=== PATIENT | female | born 1985 | race Caucasian/White ===

== ENCOUNTER → 2016-07-22 | Day surgery (SDC) | payer BC ==
[2016-07-11 13:47] VITALS: Ht 165.1 cm; Wt 62.3 kg
[~2016-07-22] VITALS: Ht 165.1 cm; Wt 62.3 kg
[~2016-07-22] MED LIST: LIDOCAINE HCL 2% 2 ML VIAL (20MG/ML) ONE; MIDAZOLAM HCL 1 MG/ML 2ML VIAL ONE; ONDANSETRON INJ 2 MG/ML 2 ML VIAL ONE; PROPOFOL IV EMULSION 10 MG/ML 20 ML VIAL IV ONE; SODIUM CHLORIDE 0.9% 500ML 500 ML IV ONE
--- NOTE | 2016-07-22 11:06 | Endo History and Physical ---
History & Physical Date of Service: Jul 22, 2016. Chief Complaint: Screening, Fam hx colon CA (maternal grandfather; fam hx colon polyps; mom Referring Physician: Venancio Cisneros History of Present Illness 30 yo CF who presents for colonoscopy secondary to family history of colon cancer and colon polyps. Past Surgical History Hx Cardiac Surgery: No Hx Internal Defibrillator: No Hx Pacemaker: No Hx Abdominal Surgery: No Hx of Implantable Prosthesis: No Hx Post-Op Nausea and Vomiting: No Hx Cancer Surgery: No Hx Thoracic Surgery: No Hx Orthopedic: No Hx Urinary Tract Surgery: No Family History Colon CA, Polyp Social History Smoking Status: Never Smoker Hx Substance Use: No Hx Alcohol Use: Yes (RARELY) Allergies Coded Allergies: NO KNOWN DRUG ALLERGIES (Verified Allergy, Unknown, ., 07/11/16) Current Medications Reported Home Medications Medications Dose Route/Sig Max Daily Dose Days Date Category No Active Prescriptions or Reported Medications Rx Vital Signs Weight (Kilograms): 62.27 Height (Feet): 5 Height (Inches): 5 Date Time Temp Pulse Resp B/P Pulse Ox O2 Delivery O2 Flow Rate FiO2 07/22/16 10:39 37.1 72 16 118/65 97 Room Air Physical Exam General Appearance: WD/WN, no apparent distress Respiratory/Chest: Auscultation: breath sounds normal Cardiovascular: Heart Auscultation: RRR Abdomen: Bowel Sounds: normal Inspection & Palpation: soft, non-distended, no tenderness, guarding & rebound Assessment and Plan Assessment: 30 yo CF who presents for colonoscopy secondary to family history of colon cancer and colon polyps. Plan: Proceed with colonoscopy.
--- NOTE | 2016-07-22 11:24 | Discharge Instructions ---
Endoscopy Patient Instructions Date / Procedure(s) Performed Jul 22, 2016. Colonoscopy Allergy Information Coded Allergies: NO KNOWN DRUG ALLERGIES (Verified Allergy, Unknown, ., 07/11/16) Discharge Date / Findings Jul 22, 2016. Internal hemorrhoids Medication Instructions Reported Home Medications Medications Dose Route/Sig Max Daily Dose Days Date Category No Active Prescriptions or Reported Medications Rx Provider Instructions Activity Restrictions - No exercising or heavy lifting for 24 hours. - Do not drink alcohol the day of the procedure. - Do not drive a car or operate machinery until the day after the procedure. - Do not make any important decisions or sign important papers in 24 hours after the procedure. Following Day: - Return to full activity which may include returning to work/school. Diet Start your diet with liquids and light foods (jello, soup, juice, toast). Then eat your usual diet if not nauseated. Treatment For Common After Affects For mild abdominal pain, bloating, or excessive gas: - Rest - Eat lightly - Lie on right side Follow-Up Information Follow-up with Venancio Cisneros as scheduled Anesthesia Information What You Should Know You have had a procedure that required some medicine to reduce anxiety and discomfort. This treatment is called moderate sedation. After receiving the treatment, you may be sleepy, but you will be able to breathe on your own. The effects of the treatment may last for several hours. Follow these instructions along with Activity/Diet recommendations noted above: * Do NOT do anything where dizziness or clumsiness would be dangerous. * Rest quietly at home today, then you can be up and about tomorrow. * Have a responsible person stay with you the rest of today. * You may have had an I.V. today. If so, you may take the dressing off later today. Recommendations Call your doctor if: * Trouble breathing * Continuous vomiting for more than 24 hours * Temperature above 101 degrees * Severe abdominal pain or bloating * Pain not relieved by pain medicine ordered * There is increased drainage or redness from any incision * A large amount of rectal bleeding greater than 2-3 tablespoons. (If you had a polyp/s removed or have hemorrhoids, a small amount of blood - from the rectum is to be expected.) * You have any unanswered questions or concerns. IN THE EVENT OF A SERIOUS EMERGENCY, GO TO THE NEAREST EMERGENCY ROOM Your discharge instructions were prepared by provider Edmundo G. Case. Patient Instructions Signature Page Leticia Hooker Patient (or Guardian) Signature/Date: I have read and understand the instructions given to me by my caregivers. Caregiver/RN/Doctor Signature/Date: The above-named patient and/or guardian has received patient instructions on this date. + Original Patient Signature Page (only) stays with chart. Please make copy for patient.
--- NOTE | 2016-07-22 11:30 | GI REPORT ---
Procedure Date: 07/22/2016 10:41 AM Procedure: Colonoscopy Indications: Family history of colon cancer, Family history of colonic polyps in a first-degree relative Medicines: Monitored Anesthesia Care Complications: No immediate complications. Estimated Blood Loss: Estimated blood loss: none. Procedure: Pre-Anesthesia Assessment: - Prior to the procedure, a History and Physical was performed, and patient medications and allergies were reviewed. The patient's tolerance of previous anesthesia was also reviewed. The risks and benefits of the procedure and the sedation options and risks were discussed with the patient. All questions were answered, and informed consent was obtained. Prior Anticoagulants: The patient has taken no previous anticoagulant or antiplatelet agents. ASA Grade Assessment: I - A normal, healthy patient. After reviewing the risks and benefits, the patient was deemed in satisfactory condition to undergo the procedure. After I obtained informed consent, the scope was passed under direct vision. Throughout the procedure, the patient's blood pressure, pulse, and oxygen saturations were monitored continuously. The scope was introduced through the anus and advanced to the terminal ileum. The colonoscopy was performed without difficulty. The patient tolerated the procedure well. The quality of the bowel preparation was good. The terminal ileum, ileocecal valve, appendiceal orifice, and rectum were photographed. Findings: Non-bleeding internal hemorrhoids were found during retroflexion. The hemorrhoids were small. Impression: - Non-bleeding internal hemorrhoids. - No specimens collected. Recommendation: - Resume previous diet. - Continue present medications. - Repeat colonoscopy in 5 years for surveillance. - Return to primary care physician as previously scheduled. Edmundo Kulkarni DO 07/22/2016 11:29:08 AM This report has been signed electronically. Note Initiated On: 07/22/2016 10:41 AM
[2016-07-22 11:55] VITALS: BP 102/56; PULSE 65; O2SAT 100
--- NOTE | 2016-07-22 15:05 | Anesthesiology Progress Note ---
Anesthesia Post Op Note Date & Time Jul 22, 2016 at 15:05 Vital Signs Pain Intensity: 0 Vital Signs Past 12 Hours Date Time Temp Pulse Resp B/P Pulse Ox O2 Delivery O2 Flow Rate FiO2 07/22/16 11:55 65 16 102/56 100 Room Air 07/22/16 11:40 70 16 103/54 100 Room Air 07/22/16 11:25 68 16 89/53 100 Room Air 07/22/16 10:39 37.1 72 16 118/65 97 Room Air Notes Mental Status: alert / awake / arousable, participated in evaluation Pt Amnestic to Procedure: Yes Nausea / Vomiting: adequately controlled Pain: adequately controlled Airway Patency, RR, SpO2: stable & adequate BP & HR: stable & adequate Hydration State: stable & adequate Anesthetic Complications: no major complications apparent
== END | disposition home or self-care (01) ==
LOC: C.GI 09:59
PROVIDERS: ATTEND Internal Medicine
DX: Z12.11 Encounter for screening for malignant neoplasm of colon (principal); K64.8 Other hemorrhoids; Z83.71 Family history of colonic polyps; Z80.0 Family history of malignant neoplasm of digestive organs

== ENCOUNTER → 2016-09-12 | Outpatient (CLI) | payer BC ==
[2016-09-12 17:44] LABS: BASO % 0.6 %; BASO ABS # 0.03 K/uL (0-0.2); COMPLETE YES; EOS % 1.7 %; HEMATOCRIT 40.9 % (37-47); IG% 0.2 %; LYMPH ABS # 1.71 K/uL (1.2-3.4); MEAN CELL VOLUME 92.7 fL (80-100); MEAN CORPUSCULAR HEMOGLOBIN 30.6 pg (25-34); MEAN PLATELET VOLUME 11.6 fL (7.4-10.4); MONO % 5.5 %; PLATELET COUNT 286 K/uL (130-400); RED BLOOD COUNT 4.41 M/uL (4.2-5.4); WHITE BLOOD COUNT 4.75 K/uL (4.8-10.8)
[2016-09-12 18:16] LABS: ALT/SGPT 17 U/L (12-78); BLOOD UREA NITROGEN 11 mg/dl (7-18); BUN/CREATININE RATIO 13.5 (10-20); CALCIUM 9.3 mg/dl (8.5-10.1); CARBON DIOXIDE 29 mmol/L (21-32); CHLORIDE 105 mmol/L (98-107); GLUCOSE 76 mg/dl (70-99); POTASSIUM 4.4 mmol/L (3.5-5.1); SODIUM 141 mmol/L (136-145)
[2016-09-12 18:21] LABS: LYME DISEASE AB IGG NEG (NEG); LYME DISEASE AB IGM NEG (NEG)
[2016-09-12 18:26] LABS: ALB/GLOB RATIO 1.1 (0.9-2); ALKALINE PHOSPHATASE 79 U/L (45-117); AST/SGOT 13 U/L (15-37); THYROID STIMULATING HORMONE 0.856 uIu/ml (0.300-4.500)
== END | disposition home or self-care (01) ==
LOC: C.LABBFT 14:18
PROVIDERS: ATTEND Physician Assistant Medical
DX: H57.10 Ocular pain, unspecified eye (principal); B00.1 Herpesviral vesicular dermatitis; R53.1 Weakness

== ENCOUNTER → 2016-12-25 | Outpatient (CLI) | payer BC ==
[2016-12-25 12:19] LABS: URINE APPEARANCE CLOUDY (CLEAR); URINE BILIRUBIN NEG (NEG); URINE COLOR YELLOW; URINE EPITHELIAL CELL AUTO 20-30 /lpf (0-5); URINE NITRITE NEG (NEG); URINE PH 7.5 (4.5-7.5); URINE SPECIFIC GRAVITY 1.025 (1.000-1.030); UROBILINOGEN NEG (NEG)
[2016-12-25 12:27] LABS: MANUAL MICROSCOPIC REQUIRED? NO; REVIEW REQ? NO
== END | disposition home or self-care (01) ==
LOC: C.LABSPEC 11:37
PROVIDERS: ATTEND Obstetrics & Gynecology
DX: Z34.00 Encounter for supervision of normal first pregnancy, unspecified trimester (principal)

== ENCOUNTER → 2017-01-09 | Outpatient (CLI) | payer BC ==
[2017-01-13 10:08] LABS: CHLAMYDIA TRACH RNA*** NOT DETECTED (NOT DETECTED); GC (NEIS GONORRHOEAE)RNA** NOT DETECTED (NOT DETECTED)
== END | disposition home or self-care (01) ==
LOC: C.LABSPEC 13:28
PROVIDERS: ATTEND Obstetrics & Gynecology
DX: Z34.00 Encounter for supervision of normal first pregnancy, unspecified trimester (principal)

== ENCOUNTER → 2017-01-09 | Outpatient (CLI) | payer BC | END | disposition home or self-care (01) | LOC: C.PAPS 14:33 | PROVIDERS: ATTEND Obstetrics & Gynecology | DX: Z01.419 Encounter for gynecological examination (general) (routine) without abnormal findings (principal) ==

== ENCOUNTER → 2017-02-27 | Outpatient (CLI) | payer BC ==
[2017-02-27 17:27] LABS: GTGD 50 Grams
== END | disposition home or self-care (01) ==
LOC: C.LAB1850 14:55
PROVIDERS: ATTEND Obstetrics & Gynecology
DX: Z34.01 Encounter for supervision of normal first pregnancy, first trimester (principal)

== ENCOUNTER → 2017-05-20 | Outpatient (CLI) | payer BC ==
[2017-05-20 17:58] LABS: URINE APPEARANCE CLEAR (CLEAR); URINE BILIRUBIN NEG (NEG); URINE COLOR YELLOW; URINE EPITHELIAL CELL AUTO >30 /lpf (0-5); URINE NITRITE NEG (NEG); URINE PH 5.5 (4.5-7.5); URINE SPECIFIC GRAVITY 1.023 (1.000-1.030); UROBILINOGEN NEG (NEG)
[2017-05-20 18:00] LABS: MANUAL MICROSCOPIC REQUIRED? NO; REVIEW REQ? YES
== END | disposition home or self-care (01) ==
LOC: C.LABSPEC 17:29
PROVIDERS: ATTEND Obstetrics & Gynecology
DX: Z34.02 Encounter for supervision of normal first pregnancy, second trimester (principal)

== ENCOUNTER → 2017-06-03 | Outpatient (CLI) | payer BC ==
[2017-06-03 16:40] LABS: HEMATOCRIT 34.5 % (37-47)
[2017-06-03 18:01] LABS: GTGD 50 Grams
== END | disposition home or self-care (01) ==
LOC: C.LAB1850 15:18
PROVIDERS: ATTEND Obstetrics & Gynecology
DX: Z34.02 Encounter for supervision of normal first pregnancy, second trimester (principal)

== ENCOUNTER → 2017-06-13 | Outpatient (CLI) | payer BC | END | disposition home or self-care (01) | LOC: C.LAB1850 07:41 | PROVIDERS: ATTEND Obstetrics & Gynecology | DX: O28.1 Abnormal biochemical finding on antenatal screening of mother (principal) ==

== ENCOUNTER → 2017-07-17 | Outpatient (CLI) | payer OTHER | END | disposition home or self-care (01) | LOC: C.LABSPEC 09:06 | PROVIDERS: ATTEND Obstetrics & Gynecology | DX: Z34.03 Encounter for supervision of normal first pregnancy, third trimester (principal) ==

== ENCOUNTER 2017-08-13 23:37 | Inpatient (IN) | payer OTHER ==
[~2017-08-13] VITALS: Ht 165.1 cm; Wt 85.5 kg
[2017-08-14] MEDS ORDERED: PRENTAB26 PO (00:41)
[2017-08-14 00:42] VITALS: Ht 165.1 cm; Wt 85.5 kg
[2017-08-14] MEDS ORDERED: LACTATED RINGER'S 1000ML 1,000 ML IV PRN (04:42)
[2017-08-14] MEDS ORDERED: BUPIVACAINE 0.25% 30 ML VIAL ONE (04:51)
[2017-08-14] MEDS ORDERED: FENTANYL 2MCG/ML ROPIV 1.25MG/ML 100ML BAG EPI ONE (04:51)
[2017-08-14] MEDS ORDERED: FENTANYL CITRATE INJ 50 MCG/1 ML 2 ML VIAL ONE (04:51)
[2017-08-14] MEDS ORDERED: EpHEDrine SULFATE INJ 50 MG/ML AMP ONE (04:51)
[2017-08-14 05:01] LABS: MEAN CELL VOLUME 87.5 fL (80-100); MEAN CORPUSCULAR HGB CONC 34.3 g/dl (32-36); MEAN PLATELET VOLUME 11.1 fL (7.4-10.4); PLATELET COUNT 150 K/uL (130-400); RED CELL DISTRIBUTION WIDTH CV 13.2 % (11.5-14.5); RED CELL DISTRIBUTION WIDTH SD 42.4 fL (36.4-46.3); WHITE BLOOD COUNT 11.99 K/uL (4.8-10.8)
[2017-08-14] MEDS: LACTATED RINGER'S 1000ML 1,000 ML IV SCH ×2 (05:39→09:38)
[2017-08-14] MEDS ORDERED: NALOXONE HCL INJ 1 MG in SODIUM CHLORIDE 0.9% 1000ML 1,000 ML IV PRN (05:52)
[2017-08-14] MEDS ORDERED: LACTATED RINGER'S 1000ML 500 ML IV PRN ×2 (05:52→08:16)
[2017-08-14] MEDS ORDERED: NALOXONE HCL INJ 0.4 MG/1 ML VIAL/CARP IV PRN (06:00)
[2017-08-14] MEDS ORDERED: DiphenhydrAMINE HCL 50 MG/ML VIAL IV PRN (06:00)
[2017-08-14] MEDS ORDERED: ONDANSETRON INJ 2 MG/ML 2 ML VIAL IV PRN (06:00)
[2017-08-14] MEDS ORDERED: NALBUPHINE HCL INJ 10 MG/ML AMP IV PRN (06:00)
[2017-08-14] MEDS ORDERED: EpHEDrine SULFATE INJ 50 MG/ML AMP IV PRN (06:00)
[2017-08-14] MEDS: FENTANYL 2MCG/ML ROPIV 1.25MG/ML 100ML BAG EPI PRN ×2 (07:00→13:00)
[2017-08-14] MEDS ORDERED: OXYTOCIN 30 UNITS/500ML NSS IV PRN ×2 (08:30→17:00)
[2017-08-14] MEDS ORDERED: NURSING VERBAL MED ORDER ONE ×2 (13:45→16:00)
[2017-08-14] MEDS ORDERED: METHYLERGONOVINE MALEATE 0.2 MG/ML AMP ONE (16:58)
[2017-08-14] MEDS ORDERED: DIPHTHERIA/TETANUS/PERTUSSIS 0.5 ML SYR/VIAL IM. ONE (17:00)
[2017-08-14] MEDS ORDERED: ACETAMINOPHEN 325 MG TAB PO PRN (17:00)
[2017-08-14] MEDS ORDERED: ACETAMINOPHEN/CODEINE 300/30MG TAB PO PRN ×2 (17:00)
[2017-08-14] MEDS ORDERED: METHYLERGONOVINE MALEATE 0.2 MG/ML AMP IM ONE (17:00)
[2017-08-14] MEDS ORDERED: BENZOCAINE 20% AER SPR 82.5 GM CAN EXT PRN (17:00)
[2017-08-14] MEDS ORDERED: LANOLIN OINT EXT PRN (17:00)
[2017-08-14] MEDS ORDERED: HYDROCORTISONE ACETATE 25 MG SUPP PR PRN (17:00)
[2017-08-14] MEDS ORDERED: SUPERCREAM 0.870 % 15GM JAR EXT PRN (17:00)
--- NOTE | 2017-08-14 17:45 | Anesthesia Procedure Note ---
Anesthesia Epidural Removal Nt Date & Time Aug 14, 2017 at 17:45 Vital Signs Pain Intensity: 0.0 Notes Mental Status: alert / awake / arousable, participated in evaluation Nausea / Vomiting: adequately controlled Pain: adequately controlled Airway Patency, RR, SpO2: stable & adequate BP & HR: stable & adequate Hydration State: stable & adequate Neuraxial Anesthesia: was administered Anesthetic Complications: no major complications apparent, pt satisfied with anesthetic care Epidural: removed without complications, with tip intact
--- NOTE | 2017-08-14 17:54 | DELIVERY SUMMARY ---
DATE OF OPERATION: 08/14/2017 FINDINGS: Viable female with Apgars of 8 and 9. Baby delivered over mild second degree laceration. Cord gases and cord blood samples obtained. Placenta delivered spontaneously. Laceration repaired in routine fashion. ESTIMATED BLOOD LOSS: 300 mL. DELIVERY NOTE: The patient is a 31-year-old 1, para 0 at 40 plus weeks gestational age, who presented to labor and delivery with complaint of contractions. The patient had been observed on labor and delivery for several hours and had a cervical change from 1-2 cm to 3 cm and was therefore admitted. course remarkable for gestational diabetes diet controlled. Upon admission, the patient was 3 cm dilated, 100% effaced and 0 station. The patient was very uncomfortable. Anesthesia was consulted and epidural was placed. Following placement of the epidural, she had artificial rupture of membranes for light meconium. Tracing was category 1. Contractions spaced out after the epidural and Pitocin for initiated for augmentation protocol increased. Over the next 8 hours, the patient progressed to full dilatation. She initially had no sensation to push and the epidural rate was decreased. When the sensation of the contractions returned, the patient began her second stage and pushed for approximately 5 minutes delivering the viable female infant. Good vigorous cry at terminating meconium resuscitation. Cord was clamped and cut. Cord gases and cord blood samples obtained. Placenta delivered spontaneously. Inspection of the perineum showed a midline second degree laceration and this was repaired with 4-0 Vicryl in routine fashion. Estimated blood loss was 300 mL. Sponge and needle count was correct. I attest to the content of the Intraoperative Record and any orders documented therein. Any exception s are noted below.
[2017-08-14] MEDS: IBUPROFEN 600 MG TAB PO PRN ×2 (18:44→22:38)
[2017-08-14 19:50] VITALS: BP 123/76; PULSE 78; TEMP 36.6; O2SAT 96
[2017-08-14 23:35] VITALS: BP 104/62; PULSE 73; TEMP 36.6
[2017-08-15 04:20] VITALS: BP 112/63; PULSE 82; TEMP 36.7
[2017-08-15] MEDS: IBUPROFEN 600 MG TAB PO PRN ×3 (04:37→12:43)
[2017-08-15 05:59] LABS: HEMATOCRIT 33.2 % (37-47); HEMOGLOBIN 11.4 g/dL (12.0-16.0)
--- NOTE | 2017-08-15 06:42 | Progress Note ---
Subjective Aug 15, 2017. Subjective conversation w/ patient (Patient seen and examined at bedside), physical exam Ambulation: ambulating normally Voiding: no voiding problems Diet Tolerance: Regular Diet Lochia: Moderate Feeding Type: Breast Feeding Pain: 4/10 in perineal region, improved with analgesia Review of Systems Constitutional: No fever, No chills Respiratory: No shortness of breath Cardiac: No chest pain Abdomen: No nausea, No vomiting Objective Vital Signs Date Time Temp Pulse Resp B/P (MAP) Pulse Ox O2 Delivery O2 Flow Rate FiO2 08/15/17 04:20 36.7 82 18 112/63 (79) 08/14/17 23:35 36.6 73 18 104/62 (76) 08/14/17 23:35 Room Air 08/14/17 19:50 36.6 78 18 123/76 (92) 96 Room Air 08/14/17 19:50 96 Room Air Physical Exam General Appearance: WELL-APPEARING, WD/WN, NO APPARENT DISTRESS Respiratory/Chest: lungs clear, normal breath sounds Cardiovascular: regular rate, rhythm Abdomen: soft Fundus: Firm, Non-Tender, Relation to Umbilicus (1 below) Extremities: no calf tenderness Laboratory Results Last 24 Hours Test 08/14/17 07:20 08/14/17 09:43 08/14/17 11:08 08/14/17 13:04 Bedside Glucose 104 mg/dl 88 mg/dl 75 mg/dl 74 mg/dl Test 08/14/17 15:35 08/14/17 16:15 08/15/17 05:47 Bedside Glucose 66 mg/dl 92 mg/dl Hemoglobin 11.4 g/dL Hematocrit 33.2 % Medications Current Inpatient Medications Medications (Trade) Dose Ordered Sig/William Route Start Time Stop Time Status Last Admin Dose Admin Lactated Ringer's 1,000 ml @ 125 mls/hr Q8H IV 08/14/17 04:42 08/16/17 04:41 08/14/17 09:38 125 MLS/HR Lactated Ringer's 500 ml @ 999 mls/hr Q31M PRN IV 08/14/17 08:16 09/13/17 08:15 Oxytocin (Pitocin IV) 30 units UD PRN IV 08/14/17 17:00 09/13/17 16:59 Benzocaine (Dermoplast Aero Spr) 1 appln PRN PRN EXT 08/14/17 17:00 09/13/17 16:59 08/14/17 21:20 1 APPLN Cocaine HCl (Supercream 0.870% Cr) BID PRN EXT 08/14/17 17:00 08/28/17 16:59 Hydrocortisone Acetate (Anusol Hc Supp) 25 mg BID PRN [place] 08/14/17 17:00 09/13/17 16:59 Lanolin (Lanolin Oint) PRN PRN EXT 08/14/17 17:00 09/13/17 16:59 Prenat Multivit/ [place]/Iron/Folic Ac ( Vitamin Tab) 1 tab DAILY PO 08/15/17 08:00 09/14/17 07:59 Ibuprofen (Motrin Tab) 600 mg Q4H PRN PO 08/14/17 17:00 09/13/17 16:59 08/15/17 04:37 600 MG Acetaminophen (Tylenol Tab) 650 mg Q6H PRN PO 08/14/17 17:00 09/13/17 16:59 Acetaminophen/ Codeine Phosphate (Tylenol w/ Codeine #3 Tab) 1 tab Q4H PRN PO 08/14/17 17:00 09/13/17 16:59 Acetaminophen/ Codeine Phosphate (Tylenol w/ Codeine #3 Tab) 2 tab Q4H PRN PO 08/14/17 17:00 09/13/17 16:59 Bisacodyl (Dulcolax Tab) 5 mg 20 PO 08/15/17 20:00 08/15/17 20:01 Docusate Sodium (coLACE CAP) 100 mg BID PO 08/14/17 20:00 09/13/17 19:59 Ferrous Sulfate (Feosol Tab) 325 mg DAILY PO 08/15/17 08:00 09/14/17 07:59 Assessment and Plan Post- Day#: 1 Continue Routine Care: 31 year old s/p NVD day 1 - complicated by GDM - pt doing well clinically - O+, Rubella immune, GBS -ve - vitals reviewed and wnl - Hgb 12.9 -> 11.4 - continue to encourage ambulation, and analgesia prn Resident Physician Supervision Note: I interviewed and examined the patient. Discussed with Dr. Tarmohamed and agree with findings and plan as documented in the note. Any exceptions or clarifications are listed here: baby desated, in nursery in Level II, echo with probable small VSD Documented By: Karlos Gil Resident Tracking Resident Involvement: Resident Care Provided Care Provided: OB Delivery
--- NOTE | 2017-08-15 06:55 | Discharge Instructions ---
Discharge Instructions Date of Service Aug 15, 2017. Admission Reason for Admission: LABOR Discharge Discharge Diagnosis / Problem: Vaginal Delivery Discharge Goals Goal(s): Routine recovery after delivery Medications Continue Dispensed Medications: supercream, dermaplast, tucks, lansinoh Activity Recommendations Activity Limitations: per Instructions/Follow-up section . Current Hospital Diet Patient's current hospital diet: Regular OB Diet Discharge Diet Recommended Diet: Regular Diet Pending Studies Studies pending at discharge: no Medical Emergencies . Who to Call and When: Medical Emergencies: If at any time you feel your situation is an emergency, please call 911 immediately. . Non-Emergent Contact Non-Emergency issues call your: Primary Care Provider . . "Provider Documentation" section prepared by Pollo Callejas. . VTE Core Measure Inpt VTE Proph given/why not?: Treatment not indicated
[2017-08-15 07:30] VITALS: BP 92/54; PULSE 78; TEMP 37; O2SAT 97
[2017-08-15] MEDS: DOCUSATE SODIUM 100 MG CAP PO SCH ×2 (08:00→20:00)
[2017-08-15] MEDS: FERROUS SULFATE 325 MG TAB PO SCH (08:48)
[2017-08-15] MEDS: PRENATAL VITAMIN TAB PO SCH (08:48)
[2017-08-15 11:30] VITALS: BP 103/67; PULSE 81; TEMP 36.8; O2SAT 97
[2017-08-15 15:26] VITALS: BP 103/64; PULSE 77; TEMP 36.8; O2SAT 98
[2017-08-15] MEDS ORDERED: BISACODYL 5 MG TABEC PO SCH (20:00)
[2017-08-16] VITALS: BP 94/56; PULSE 70; TEMP 36.6
--- NOTE | 2017-08-16 06:34 | Progress Note ---
Subjective Aug 16, 2017. Subjective conversation w/ patient (patient seen and examined at bedside) Ambulation: ambulating normally Voiding: no voiding problems Diet Tolerance: Regular Diet Lochia: Moderate Feeding Type: Breast Feeding Pain: 4/10, improved with analgesia Review of Systems Constitutional: No fever, No chills Respiratory: No shortness of breath Cardiac: No chest pain Abdomen: No nausea, No vomiting Female : No dysuria Objective Vital Signs Date Time Temp Pulse Resp B/P (MAP) Pulse Ox O2 Delivery O2 Flow Rate FiO2 08/16/17 00:00 Room Air 08/16/17 00:00 36.6 70 18 94/56 (69) Room Air 08/15/17 15:26 98 Room Air 08/15/17 15:26 36.8 77 18 103/64 (77) 98 Room Air 08/15/17 11:30 36.8 81 16 103/67 (79) 97 Room Air 08/15/17 07:30 Room Air 08/15/17 07:30 37.0 78 16 92/54 (67) 97 Room Air Physical Exam General Appearance: WELL-APPEARING, WD/WN, NO APPARENT DISTRESS Respiratory/Chest: lungs clear, normal breath sounds Cardiovascular: regular rate, rhythm Abdomen: soft Fundus: Firm, Non-Tender, Relation to Umbilicus (1 below) Extremities: no calf tenderness, + pertinent finding (bilateral leg edema) Medications Current Inpatient Medications Medications (Trade) Dose Ordered Sig/William Route Start Time Stop Time Status Last Admin Dose Admin Lactated Ringer's 500 ml @ 999 mls/hr Q31M PRN IV 08/14/17 08:16 09/13/17 08:15 Oxytocin (Pitocin IV) 30 units UD PRN IV 08/14/17 17:00 09/13/17 16:59 Benzocaine (Dermoplast Aero Spr) 1 appln PRN PRN EXT 08/14/17 17:00 09/13/17 16:59 08/14/17 21:20 1 APPLN Cocaine HCl (Supercream 0.870% Cr) BID PRN EXT 08/14/17 17:00 08/28/17 16:59 Hydrocortisone Acetate (Anusol Hc Supp) 25 mg BID PRN [place] 08/14/17 17:00 09/13/17 16:59 Lanolin (Lanolin Oint) PRN PRN EXT 08/14/17 17:00 09/13/17 16:59 Prenat Multivit/ Provider Relations Manager/Iron/Folic Ac ( Vitamin Tab) 1 tab DAILY PO 08/15/17 08:00 09/14/17 07:59 08/15/17 08:48 1 TAB Ibuprofen (Motrin Tab) 600 mg Q4H PRN PO 08/14/17 17:00 09/13/17 16:59 08/15/17 12:43 600 MG Acetaminophen (Tylenol Tab) 650 mg Q6H PRN PO 08/14/17 17:00 09/13/17 16:59 Acetaminophen/ Codeine Phosphate (Tylenol w/ Codeine #3 Tab) 1 tab Q4H PRN PO 08/14/17 17:00 09/13/17 16:59 Acetaminophen/ Codeine Phosphate (Tylenol w/ Codeine #3 Tab) 2 tab Q4H PRN PO 08/14/17 17:00 09/13/17 16:59 Docusate Sodium (coLACE CAP) 100 mg BID PO 08/14/17 20:00 09/13/17 19:59 08/15/17 08:00 100 MG Ferrous Sulfate (Feosol Tab) 325 mg DAILY PO 08/15/17 08:00 09/14/17 07:59 08/15/17 08:48 325 MG Assessment and Plan Post- Day#: 2 Continue Routine Care: Resident Physician Supervision Note: I was present with Dr. Callejas during the history and exam. I discussed the case with the resident and agree with the findings and plan as documented in the note. Any exceptions or clarifications are listed here: [None] Documented By: Sarah Dodd 31 year old s/p NVD day 2 - complicated by GDM - pt doing well clinically - O+, Rubella immune, GBS -ve - vitals reviewed and wnl - continue to encourage ambulation and analgesia prn - baby desatted initially, but is now stable. Peds is monitoring closely today. Resident Tracking Resident Involvement: Resident Care Provided Care Provided: OB Delivery
[2017-08-16 07:00] VITALS: BP 104/69; PULSE 88; TEMP 36.6; O2SAT 98
[2017-08-16] MEDS: IBUPROFEN 600 MG TAB PO PRN ×3 (07:05→19:26)
[2017-08-16] MEDS: FERROUS SULFATE 325 MG TAB PO SCH (09:48)
[2017-08-16] MEDS: DOCUSATE SODIUM 100 MG CAP PO SCH ×2 (09:48→19:25)
[2017-08-16] MEDS: PRENATAL VITAMIN TAB PO SCH (09:48)
[2017-08-16 16:20] VITALS: BP 117/72; PULSE 76; TEMP 36.6; O2SAT 99
[2017-08-16 16:49] VITALS: BP_DIAS 72; PULSE 76; TEMP 36.6
== END 2017-08-16 22:10 | disposition home or self-care (01) | DRG 775 ==
LOC: C.OPB 23:37 → C.LD 23:37 → C.OPB 08-14 04:43 → C.LD 08-14 04:43 → C.OBG 08-14 19:45
PROVIDERS: ADMIT Obstetrics & Gynecology; ATTEND Obstetrics & Gynecology
PROC: 10E0XZZ Delivery of Products of Conception, External Approach (ICD-10-PCS; principal; 2017-08-14)
PROC: 0KQM0ZZ Repair Perineum Muscle, Open Approach (ICD-10-PCS; principal; 2017-08-14)
DX: O70.1 Second degree perineal laceration during delivery (principal); O24.420 Gestational diabetes mellitus in childbirth, diet controlled; Z37.0 Single live birth

== ENCOUNTER 2019-04-27 03:48 | Inpatient (IN) ==
[2019-04-27] MEDS ORDERED: OXYTOCIN 30 UNITS/500 ML BAG IV PRN ×3 (04:04→09:47)
[2019-04-27 04:28] LABS: Hematocrit (blood only) 38.1 % (37-47); Hemoglobin 12.7 g/dL (12.0-16.0); Mean Corpuscular Hemoglobin 30.2 pg (25-34); Mean Corpuscular Volume 90.5 fL (80-100); Mean Platelet Volume 11.6 fL (7.4-10.4); Platelet Count 166 K/uL (130-400); RDW Coefficient of Variation 13.9 % (11.5-14.5); RDW Standard Deviation 45.3 fL (36.4-46.3); Red Blood Count 4.21 M/uL (4.2-5.4); White Blood Count 11.44 K/uL (4.8-10.8)
[2019-04-27] MEDS ORDERED: fentaNYL citrate 100 MCG/2 ML VIAL ONE (04:31)
[2019-04-27] MEDS ORDERED: BUPIVACAINE 0.25% 30 ML VIAL ONE (04:31)
[2019-04-27] MEDS ORDERED: ePHEDrine sulfate 50 MG/ML AMP ONE (04:31)
[2019-04-27] MEDS ORDERED: fentaNYL 2MCG/ML ROPIV 1.25MG/ML 100 ML BAG EPI ONE (04:32)
[2019-04-27 04:35] LABS: Mean Corpuscular Hgb Conc 33.3 g/dL (32-36)
[2019-04-27] MEDS: LACTATED RINGER'S 1,000 ML IV PRN ×2 (04:41→05:42)
--- NOTE | 2019-04-27 05:08 | Anesthesiology Consultation ---
Date of Service April 27, 2019 Assessment & Plan Chart Review Chart Review: Acceptable Risk for Labor Epidural ASA ASA2 Proposed Anesthesia Anesthesia Type: Labor Epidural Risk / Benefits Reviewed With: PT / POA / Parent / Guardian, Accepts Plan and Informed Consent Obtained History Height/Weight Height: 5 ft 5 in Weight: 87.543 kg Allergies Allergy/AdvReac Type Severity Reaction Status Date / Time No Known Drug Allergies Allergy Unknown . Verified 04/27/19 04:14 Medications Home Medications Medication Instructions Recorded Confirmed Last Taken acetone (urine) test MS 01/26/19 04/20/19 04/25/19 06:30 1 tab PO DAILY 01/26/19 04/27/19 04/25/19 21:00 vitamin,calcium,jwfhrofl-ebjr-xovea acid tablet Active Medications Generic Name Dose Route Start Last Admin Trade Name Freq PRN Reason Stop Dose Admin Lactated Ringer's 1,000 mls @ 125 mls/hr 04/27/19 04:04 04/27/19 04:41 Lr IV 04/29/19 04:03 999 mls/hr .Q8H PRN Administration L&D Protocol Protocol Past Medical History Medical History Low-lying placenta Exercise / Class Metabolic Activity II 4-5 Yardwork/Stairs/Walk up hill Past Family History Family History Grandmother (Maternal) Breast cancer Mother Blood clot in vein Grandfather (Maternal) Colorectal cancer Father Dyslipidemia Other Hypertension Past Surgical History Surgical History H/O oral surgery Past Anesthesia History No Hx of Anesthesia Complications and No Family Hx of Anesthesia Complications History of PONV No Hx of PONV and No Hx of Motion Sickness Social History Smoking Status: Never smoker Hx Alcohol Use: No Hx Substance Use: No substance use type: does not use Review of Systems denies fever/cough/ colds/ chest pain/ SOB/ GUILLAUME denies DE/CVA/Seizure Physical Exam Vital Signs Last Vital Signs Temp 36.6 C 04/27/19 04:19 Pulse 81 04/27/19 05:37 Resp 18 04/27/19 04:19 BP 99/57 L 04/27/19 05:37 Pulse Ox 99 04/27/19 05:37 Testing Laboratory Results 04/27/19 04:15
[2019-04-27] MEDS ORDERED: ePHEDrine sulfate 50 MG/ML AMP IV PRN (05:40)
[2019-04-27] MEDS ORDERED: ONDANSETRON INJ 2 MG/ML 2 ML VIAL IV PRN (05:40)
[2019-04-27] MEDS ORDERED: DiphenhydrAMINE HCL 50 MG/ML VIAL IV PRN (05:40)
[2019-04-27] MEDS ORDERED: NALOXONE HCL 0.4 MG/1 ML VIAL/CARP IV PRN (05:40)
[2019-04-27] MEDS ORDERED: NALBUPHINE HCL INJ 10 MG/ML AMP IV PRN (05:40)
[2019-04-27] MEDS ORDERED: fentaNYL 2MCG/ML ROPIV 1.25MG/ML 100 ML BAG EPI PRN (05:40)
[2019-04-27] MEDS ORDERED: NALOXONE HCL 1 MG in SODIUM CHLORIDE 0.9% 1000ML 1,000 ML IV PRN (05:40)
--- NOTE | 2019-04-27 07:35 | History & Physical Report ---
Date of Service April 27, 2019 Assessment & Plan (1) Diet controlled gestational diabetes mellitus (GDM), antepartum: 33yo at 40 weeks GA. Labor 1 Fetus: Cat 1 2. Labor: Will continue an will augment if indicated. 3. Vitals: WNL 4. GBS Negative 5. Gestational DM: check random BG (2) Encounter for supervision of normal in multigravida: History of Present Illness Primary Care Provider: Venancio Cisneros MD 33yo at 40 weeks GA. Patient present for labor. Reporting regular contractions, No VB, LOF. Good FM. complicated by diet controlled gestational diabetes. GBS negative, Rh positive. Allergies Allergy/AdvReac Type Severity Reaction Status Date / Time No Known Drug Allergies Allergy Unknown . Verified 04/27/19 04:14 Home Medications Home Medications Medication Instructions Recorded Confirmed Type acetone (urine) test MS 01/26/19 04/20/19 History 1 tab PO DAILY 01/26/19 04/27/19 History vitamin,calcium,gveryyas-rili-iflkq acid tablet Patient History Medical History Low-lying placenta Surgical History H/O oral surgery Family History Grandmother (Maternal) Breast cancer Mother Blood clot in vein Grandfather (Maternal) Colorectal cancer Father Dyslipidemia Other Hypertension Social History Preferred Language: Tongan Communication Ability: Effective Beliefs That Will Affect Care: None marital status: Current Living Situation: Spouse and Family current occupational status: employed Other Information That Helps Us Care for You: No Feels Safe at Home: Yes Safety Concerns: Feels Safe At This Time Smoking Status: Never smoker Second Hand Exposure: No ; Hx Alcohol Use: No Hx Substance Use: No Physical Exam Constitutional: WD/WN, vitals as above Gastrointestinal (Abdomen): normal bowel sounds, soft, nontender, no hepatosplenomegaly Genitourinary: OB Exam Abdomen: + vertex Manual OB Exam: + cervical dilation 5 cm, + cervical effacement 90% and + station 0 OB Exam Monitor Tracing: + external FHT monitor used, + external uterine monitor used and + category I Results & Data Vital Signs (Past 12 Hours) Vital Signs Temp Pulse Resp BP Pulse Ox 04/27/19 07:33 71 90/51 L 04/27/19 07:31 77 99 04/27/19 07:26 75 99 04/27/19 07:21 75 100 04/27/19 07:18 76 91/51 L 04/27/19 07:16 36.6 C 79 18 99 04/27/19 07:11 92 H 98 04/27/19 07:06 91 H 99 04/27/19 07:02 80 98/54 L 04/27/19 07:01 85 96 04/27/19 07:00 16 04/27/19 06:56 74 98 04/27/19 06:51 82 98 04/27/19 06:47 88 94/53 L 04/27/19 06:46 88 99 04/27/19 06:41 88 99 04/27/19 06:36 78 99 04/27/19 06:32 82 94/55 L 04/27/19 06:31 86 100 04/27/19 06:30 16 04/27/19 06:27 87 98 04/27/19 06:22 98 H 98 04/27/19 06:17 78 103/57 L 04/27/19 06:16 78 99 04/27/19 06:15 18 04/27/19 06:12 70 107/54 L 98 04/27/19 06:07 73 99 04/27/19 06:06 73 108/58 L 04/27/19 06:01 80 105/57 L 99 04/27/19 06:00 16 04/27/19 05:57 61 110/61 04/27/19 05:56 67 98 04/27/19 05:53 71 86/48 L 04/27/19 05:52 70 98 04/27/19 05:51 71 84/52 L 04/27/19 05:49 77 82/48 L 04/27/19 05:48 79 82/50 L 04/27/19 05:47 76 87 L 04/27/19 05:46 77 92 04/27/19 05:45 16 04/27/19 05:42 81 100 04/27/19 05:41 83 101/57 L 04/27/19 05:39 82 98/55 L 04/27/19 05:37 81 99/57 L 99 04/27/19 05:35 77 99/55 L 04/27/19 05:33 74 98/57 L 04/27/19 05:32 78 98 04/27/19 05:31 76 103/58 L 04/27/19 05:29 79 99/56 L 04/27/19 05:27 81 97 04/27/19 05:26 89 117/62 04/27/19 05:22 92 H 99 04/27/19 05:17 83 100 04/27/19 05:12 88 100 04/27/19 04:43 194 H 81 L 04/27/19 04:19 36.6 C 69 18 117/61 04/27/19 04:07 69 117/61
--- NOTE | 2019-04-27 08:41 | Labor Progress Brief Note ---
Date of Service April 27, 2019 Subjective Reason For Note: Routine Evaluation Assessment & Plan (1) Diet controlled gestational diabetes mellitus (GDM), antepartum: 33yo at 40 weeks GA. Labor 1 Fetus: Cat 1 2. Labor: AROM meconium. Will augment if indicated. 3. Vitals: WNL 4. GBS Negative 5. Gestational DM: check random BG (2) Encounter for supervision of normal in multigravida: Physical Exam Genitourinary: Manual OB Exam: + cervical dilation 6 cm, + cervical effacement 90%, + station 0 and + amniotic fluid meconium OB Exam Monitor Tracing: + external FHT monitor used, + external uterine monitor used and + category I Results & Data Vital Signs (Past 12 Hours) Vital Signs Temp Pulse Resp BP Pulse Ox 04/27/19 08:37 69 90/50 L 04/27/19 08:36 69 100 04/27/19 08:31 65 100 04/27/19 08:26 65 100 04/27/19 08:21 69 100 04/27/19 08:17 68 89/48 L 04/27/19 08:16 66 99 04/27/19 08:11 70 99 04/27/19 08:06 67 99 04/27/19 08:02 67 81/42 L 04/27/19 08:01 69 99 04/27/19 07:56 78 99 04/27/19 07:51 76 99 04/27/19 07:47 78 91/51 L 04/27/19 07:46 80 99 04/27/19 07:41 76 99 04/27/19 07:36 75 99 04/27/19 07:33 71 90/51 L 04/27/19 07:31 77 99 04/27/19 07:26 75 99 04/27/19 07:21 75 100 04/27/19 07:18 76 91/51 L 04/27/19 07:16 36.6 C 79 18 99 04/27/19 07:11 92 H 98 04/27/19 07:06 91 H 99 04/27/19 07:02 80 98/54 L 04/27/19 07:01 85 96 04/27/19 07:00 16 04/27/19 06:56 74 98 04/27/19 06:51 82 98 04/27/19 06:47 88 94/53 L 04/27/19 06:46 88 99 04/27/19 06:41 88 99 04/27/19 06:36 78 99 04/27/19 06:32 82 94/55 L 04/27/19 06:31 86 100 04/27/19 06:30 16 04/27/19 06:27 87 98 04/27/19 06:22 98 H 98 04/27/19 06:17 78 103/57 L 04/27/19 06:16 78 99 04/27/19 06:15 18 04/27/19 06:12 70 107/54 L 98 04/27/19 06:07 73 99 04/27/19 06:06 73 108/58 L 04/27/19 06:01 80 105/57 L 99 04/27/19 06:00 16 04/27/19 05:57 61 110/61 04/27/19 05:56 67 98 04/27/19 05:53 71 86/48 L 04/27/19 05:52 70 98 04/27/19 05:51 71 84/52 L 04/27/19 05:49 77 82/48 L 04/27/19 05:48 79 82/50 L 04/27/19 05:47 76 87 L 04/27/19 05:46 77 92 04/27/19 05:45 16 04/27/19 05:42 81 100 04/27/19 05:41 83 101/57 L 04/27/19 05:39 82 98/55 L 04/27/19 05:37 81 99/57 L 99 04/27/19 05:35 77 99/55 L 04/27/19 05:33 74 98/57 L 04/27/19 05:32 78 98 04/27/19 05:31 76 103/58 L 04/27/19 05:29 79 99/56 L 04/27/19 05:27 81 97 04/27/19 05:26 89 117/62 04/27/19 05:22 92 H 99 04/27/19 05:17 83 100 04/27/19 05:12 88 100 04/27/19 04:43 194 H 81 L 04/27/19 04:19 36.6 C 69 18 117/61 04/27/19 04:07 69 117/61
[2019-04-27] MEDS ORDERED: OXYCODONE/ACETAMINOPHEN 5mg/325mg TAB PO PRN (09:43)
[2019-04-27] MEDS ORDERED: ACETAMINOPHEN 325 MG TAB PO PRN (09:43)
[2019-04-27] MEDS ORDERED: BISACODYL 10 MG SUPP PR PRN (09:47)
[2019-04-27] MEDS ORDERED: DIPHTHERIA/TETANUS/PERTUSSIS 0.5 ML SYR/VIAL IM ONE (09:47)
[2019-04-27] MEDS ORDERED: HYDROCORTISONE ACETATE 25 MG SUPP PR PRN (09:47)
[2019-04-27] MEDS ORDERED: BENZOCAINE 20% AER SPR 82.5 GM CAN EXT PRN (09:47)
[2019-04-27] MEDS ORDERED: SUPERCREAM 0.870% 15 GM JAR EXT PRN (09:47)
--- NOTE | 2019-04-27 09:50 | Delivery Summary ---
Vaginal Delivery Summary Date of Service April 27, 2019 Vaginal Delivery Summary Pre-operative Diagnosis: at 40 weeks diet controlled GDM labor Post-operative Diagnosis: same meconium Procedure: epidural arom repair of first degree vaginal tear EBL: 350cc Anesthesia: epidural Procedure: The patient pushed for 3 contractions to deliver a viable male infant in TOPHER position. The nose and mouth were bulb suctioned on the perineum and the rest of the infant was then delivered without difficulty. No nuchal cord. The baby was vigorous. The nose and mouth were again bulb suctioned and the infant was placed in the maternal abdomen for drying and attention. Cord was clamped and cut at one minute of life. Cord blood and segment obtained. Placenta delivered spontaneous, intact with a three vessel cord. Cervix/sulci/rectum were intact. A small first degree vaginal laceration was repaired in the normal standard fashion. Hemostasis obtained with dilute pitocin and fundal massage. Apgars were 9/9. Mother and baby doing well at the end of the delivery. [facility] Vaginal Delivery Charge Vaginal Delivery Codes: 00662 global code for the antepartum, delivery, and post-
--- NOTE | 2019-04-27 11:44 | Anesthesia Procedure Note ---
Date of Service April 27, 2019 Anesthesia Post Epidural Note Vital Signs Vital Signs: Temp Pulse Resp BP Pulse Ox 36.6 C 92 H 18 100/56 L 97 04/27/19 07:16 04/27/19 11:36 04/27/19 11:02 04/27/19 11:36 04/27/19 09:32 Pain Intensity Bilateral Abdomen: Pain Intensity: 0 Notes Mental Status: alert / awake / arousable and participated in evaluation Nausea / Vomiting: adequately controlled Pain: adequately controlled Airway Patency, RR, SpO2: stable & adequate BP & HR: stable & adequate Hydration State: stable & adequate Neuraxial Anesthesia: was administered and sensory block is resolving Anesthetic Complications: no major complications apparent and Pt Satisfied with anesthetic care Epidural: Removed without complications and With tip intact
[2019-04-27] MEDS: IBUPROFEN 600 MG TAB PO PRN ×2 (16:33→20:36)
[2019-04-27] MEDS: DOCUSATE SODIUM 100 MG CAP PO SCH (20:36)
[2019-04-28] MEDS: IBUPROFEN 600 MG TAB PO PRN ×2 (03:59→11:49)
[2019-04-28 07:05] LABS: Hematocrit (blood only) 35.9 % (37-47); Hemoglobin 11.8 g/dL (12.0-16.0)
--- NOTE | 2019-04-28 07:34 | Obstetrical Progress Note ---
Date of Service <Colleen Oliveros MD - Last Filed: 04/28/19 07:35> April 28, 2019 Assessment & Plan <Colleen Oliveros MD - Last Filed: 04/28/19 07:35> (1) Encounter for care and examination after delivery: 33 yo with GDM controlled by diet PPD1 s/p . - Doing exceptionally well this AM - no complaints, pain controlled at 0. - No cramping, nausea. - has ambulated to bathroom, moved bladder and passed gas. - discharge home later today per patient request. Medically safe to discharge. (2) Diet controlled gestational diabetes mellitus (GDM), antepartum: Day #:: 1 Subjective <Colleen Oliveros MD - Last Filed: 04/28/19 07:35> Ambulation: ambulating normally Voiding: no voiding problems Passing Gas:: Yes Diet Tolerance:: regular diet Feeding Type:: breast feeding Current Pain Level(1-10): 0 Constitutional: + fatigue; no fever and no chills Respiratory: no cough and no dyspnea No shortness of breath Cardiovascular: no chest pain, no syncope, no edema and no calf pain Breast: no breast pain Gastrointestinal: no abdominal pain, no nausea, no vomiting, no cramping, no constipation and no diarrhea/loose stools Genitourinary (female): no dysuria and no difficulty urinating Neurologic: no headache(s) Physical Exam <Colleen Oliveros MD - Last Filed: 04/28/19 07:35> Constitutional well developed and well nourished Respiratory normal respiratory effort; no respiratory distress, no labored breathing and no cough Auscultation: no crackles, no rales, no rhonchi and no wheezes Cardiovascular Rate/Rhythm: regular rate and regular rhythm Heart Sounds: no gallop, no murmur and no cardiac rub Extremities: + pedal edema Gastrointestinal (Abdomen) Inspection/Auscultation: + abdomen distended and normal bowel sounds Percussion/Palpation: abdomen soft; abdomen nontender and no guarding Musculoskeletal No pain to palpation of calves bilaterally Genitourinary Uterus firm, palpable at umbilicus, no tenderness to palpation. Results & Data <Colleen Oliveros MD - Last Filed: 04/28/19 07:35> Vital Signs (Past 12 Hours) Vital Signs Temp Pulse Resp BP 04/28/19 04:00 36.5 C 77 18 103/63 04/27/19 23:45 36.6 C 77 18 104/57 L 04/27/19 20:45 36.7 C 75 18 110/58 L <Katherine Lr MD, FACOG - Last Filed: 04/28/19 07:57> Co-Signing Physician Notes Resident Physician Supervision Note: I interviewed and examined the patient. Discussed with Dr. Oliveros and agree with findings and plan as documented in the note. Any exceptions or clarifications are listed here: Doing well. Likely d/c this pm. Instructions reviewed. Documented By: Katherine Lr MD, FACOG Resident Activity Tracking <Colleen Oliveros MD - Last Filed: 04/28/19 07:35> Resident Involvement: Resident Care Provided Care Provided: OB Delivery
[2019-04-28] MEDS ORDERED: PRENATAL VITAMIN 1 TAB PO SCH (08:00)
[2019-04-28] MEDS: DOCUSATE SODIUM 100 MG CAP PO SCH (08:18)
[2019-04-28] MEDS ORDERED: BISACODYL 5 MG TABEC PO SCH (20:00)
== END 2019-04-28 13:45 | disposition home or self-care (01) | DRG 807 ==
LOC: OPB 03:48 → 4S1 03:49 → 4S2 12:10